=== PATIENT | male | born 1935 | race Caucasian/White ===

== ENCOUNTER 2018-08-21 10:08 | Emergency (ER) | payer MEDICARE ==
[~2018-08-21] VITALS: Ht 180.3 cm; Wt 91.1 kg
--- NOTE | 2018-08-21 10:25 | NUR ---
DR HUIZAR AT BEDSIDE TO MITCH PT. CONTACT WITH PT, 83 YR OLD MALE HERE WITH C/O ONGOING PAIN AFTER TOTAL LEFT KNEE REPLACEMENT 12 DAYS AGO. LEFT LEG, SWOLLEN AND BRUISED. [place] INTACT. NO S/S OF INFECTION.
[2018-08-21] MEDS ORDERED: LOSA1TAB19 PO (10:34)
--- NOTE | 2018-08-21 11:40 | NUR ---
MAYNOR STOCKING PLACED ON LEFT LEG. PT INSTRUCTED ON USE. DISCUSSED WITH PT KEEPING LEFT LEG ELEVATED AND CONT TO USE ICE. PT VERBALIZED. UNDERSTANDING. NO IV TO DC. PT LEFT VIA W/C.
[2018-08-21 11:45] VITALS: BP 140/89
== END 2018-08-21 11:47 | disposition home or self-care (01) ==
LOC: ED 11:40
DX: R60.0 Localized edema (principal); M25.562 Pain in left knee; I10 Essential (primary) hypertension
CPT/HCPCS: 99284